=== PATIENT | male | born 1945 | race Hispanic/Latino ===

== ENCOUNTER 2018-06-23 08:12 | Day surgery (SDC) | payer MEDICARE ==
[~2018-06-23 08:12] MED LIST: ANCEF/STERILE WATER 2 GM/20 ML 2 GM/20 ML SYRINGE IV NR
[2018-06-23 08:53] LABS: Basophils # (Auto) 0.1 K/mm3 (0.0-0.1); Eosinophils # (Auto) 0.6 K/mm3 (0.0-0.4); Eosinophils % (Auto) 6.2 % (0.0-4.3); Hematocrit 43.6 % (35.5-45.6); Hemoglobin 14.5 gm/dl (11.8-15.2); Lymphocytes # (Auto) 1.4 K/mm3 (1.2-5.4); Lymphocytes % (Auto) 15.3 % (13.4-35.0); Mean Corpuscular HGB Conc 33 % (32-34); Mean Corpuscular Hemoglobin 32 pg (28-32); Mean Corpuscular Volume 95 fl (84-94); Platelet Count 200 K/mm3 (140-440); Red Cell Distribution Width 15.5 % (13.2-15.2)
[2018-06-23 09:04] LABS: INR 1.47 (0.87-1.13)
[2018-06-23 09:05] LABS: Partial Thromboplastin Time 45.6 Sec. (24.2-36.6)
[2018-06-23 09:12] LABS: Calcium 9.3 mg/dL (8.4-10.2)
[2018-06-23] MEDS: NACL 0.9% 1000 ML 1,000 ML IV SCH ×2 (09:18→11:58)
[2018-06-23] MEDS ORDERED: HEPARIN 10,000 UNITS/10 ML ONE (11:02)
[2018-06-23] MEDS ORDERED: HEPARIN/NS 5000 UNIT/500ML(CATH LAB) 1,000 ML IR ONE (11:02)
[2018-06-23] MEDS ORDERED: XYLOCAINE 2% INFILTRATI ONE ×2 (11:02→11:57)
[2018-06-23] MEDS ORDERED: NACL 0.9% 500 ML 0 ML ONE (11:25)
[2018-06-23] MEDS: SUBLIMAZE ONE ×2 (11:58→12:00)
[2018-06-23] MEDS: VERSED ONE ×2 (11:58→12:00)
--- NOTE | 2018-06-23 12:21 | Short Stay Summary ---
Short Stay Documentation Date of service: 06/23/18 - History Principal diagnosis: venous hypertension H&P: obtained from office - Allergies and Medications Current Medications: Allergies No Known Allergies Allergy (Unverified 06/23/18 08:13) Home Medications Medication Instructions Recorded Confirmed Last Taken Type ALBUTEROL Inhaler (OR & NICU) 2 puff IH QID PRN 06/23/18 06/23/18 06/22/18 History [Proair] ALBUTEROL Inhaler(NF) [VENTOLIN 2 puff IH BID 06/23/18 06/23/18 06/22/18 History Inhaler(NF)] Atenolol [Tenormin] 100 mg PO DAILY 06/23/18 06/23/18 06/23/18 History Fluticasone/Salmeterol(Nf) [Advair 1 puff IH DAILY 06/23/18 06/23/18 06/22/18 History HFA 115-21 mcg] Furosemide [Lasix TAB] 20 mg PO DAILY 06/23/18 06/23/18 06/22/18 History Lisinopril/Hydrochlorothiazide 1 each PO DAILY 06/23/18 06/23/18 06/23/18 History [Zestoretic 10-12.5 mg Tablet] Metformin HCl 1,000 mg PO BID 06/23/18 06/23/18 06/22/18 History Pravastatin [Pravachol] 20 mg PO DAILY 06/23/18 06/23/18 06/22/18 History Warfarin Sodium 5 mg PO DAILY 06/23/18 06/23/18 06/22/18 History buPROPion XL [Wellbutrin Xl] 150 mg PO QAM 06/23/18 06/23/18 06/22/18 History traZODone [Desyrel] 50 mg PO QHS 06/23/18 06/23/18 06/22/18 History Active Medications Cefazolin Sodium (Ancef/Sterile Water 2 Gm/20 Ml) 2 gm in 20 mls @ 80 mls/hr IV PREOP NR; Protocol Stop: 06/23/18 23:59 Sodium Chloride (Nacl 0.9% 1000 Ml) 1,000 mls @ 42 mls/hr IV DIRECT MAVERICK Last Admin: 06/23/18 09:18 Dose: 42 mls/hr - Brief post op/procedure progress note Date of procedure: 06/23/18 Pre-op diagnosis: venous hypertension Post-op diagnosis: same Procedure: Bilateral lower extremity venogram, bilateral lower extremity intravascular ultrasound Anesthesia: local Surgeon: DESIRAE DAVIS Estimated blood loss: minimal Pathology: none Condition: stable - Disposition Condition at discharge: Good Disposition: [id number] TO HOME OR SELFCARE Short Stay Discharge Plan Activity: advance as tolerated Weight Bearing Status: Weight Bear as Tolerated Diet: regular Wound: keep clean and dry, per your surgeon's advice Follow up with: CODY HODGE MD [Other] - 7 Days
--- NOTE | 2018-06-23 12:26 | Operative Report ---
Operative Report Operative Report: Exam: Bilateral lower extremity venogram with bilateral lower extremity venous intravascular ultrasound Clinical indication: Patient with a history of venous hypertension status post treatment of the superficial venous system with persistent symptoms of bilateral lower extremity pain, swelling and skin discoloration Date: 06/23/2018 Procedure: Following an explanation of the risks, benefits and alternatives; written informed consent was obtained. The patient was brought to the angiographic suite and placed in supine position on the examination table. Initial ultrasound evaluation of his legs demonstrated patent femoral veins bilaterally. The patient's bilateral legs and groin were prepped and draped in the usual sterile fashion. 1% lidocaine was used for anesthesia. Under ultrasound guidance, the right femoral vein proximally was cannulated with a 7 cm 18-gauge needle. A 0.035 guidewire was advanced centrally. The needle was removed and a 5 [place] sheath placed. Access to the left proximal femoral vein was obtained in a similar fashion and a second 5 [place] sheath placed. Venogram performed through both sheaths demonstrated what appears to be extrinsic compression of the left common iliac vein. There is sluggish flow throughout the presence of reflux within collateral veins in the pelvis and abdomen. A decision was made to further evaluate with intravascular ultrasound. Over the guidewires, but sheaths were upsized to 10 [place] sheaths bilaterally. Intravascular ultrasound was then performed through the right sheath from the IVC to the sheath insertion site. Imaged vessels include the IVC, right common iliac vein, right external iliac vein and right common femoral vein. Size measurements demonstrate appropriate size throughout the iliac veins and common femoral vein however, the IVC is distended with a cross sectional area of 480 mm . Intravascular ultrasound was then performed to the left sheath from the left common iliac vein to the sheath insertion site. The left common iliac vein , left external iliac vein and left common femoral vein are widely patent. There is some extrinsic compression of the left common iliac vein without hemodynamically significant stenosis. Further evaluation with venography of the entire IVC and right atrium demonstrates sluggish flow with reflux into the renal veins and hepatic veins. At this point, the catheters, guidewires and sheaths were removed and hemostasis achieved using manual compression. Sterile compression dressing for then placed. The patient tolerated the procedure well. There were no immediate post procedure complications. Conscious sedation was performed under the guidance of radiologic nursing. Continuous cardiac culinary monitoring was utilized. Impression: 1) Bilateral lower extremity venogram encoding imaging of the pelvic veins as well as IVC to the right atrium demonstrates sluggish flow with decreased cardiac output and reflux into the hepatic veins and renal veins as well as collaterals arising from the IVC and pelvic veins. 2) Intravascular ultrasound of the IVC, right common iliac vein, right external iliac vein, right common femoral vein, left common iliac vein, left external iliac vein and left common femoral vein demonstrate patent flow throughout with only minimal extrinsic compression of the left common iliac vein without hemodynamically significant stenosis. 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 Recommended that the patient follow up at the outpatient insulation nozzleman for repeat echocardiogram
[2018-06-23 14:26] VITALS: BP 146/71
== END 2018-06-23 15:14 | disposition home or self-care (01) ==
LOC: CATHLABREC 08:12
PROVIDERS: ATTEND Radiology Diagnostic Radiology
DX: I87.1 Compression of vein (principal); I87.303 Chronic venous hypertension (idiopathic) without complications of bilateral lower extremity; I11.0 Hypertensive heart disease with heart failure; I50.9 Heart failure, unspecified; E78.00 Pure hypercholesterolemia, unspecified; I25.2 Old myocardial infarction; I48.91 Unspecified atrial fibrillation; J44.9 Chronic obstructive pulmonary disease, unspecified; G47.30 Sleep apnea, unspecified; M19.90 Unspecified osteoarthritis, unspecified site; F41.9 Anxiety disorder, unspecified; Z79.899 Other long term (current) drug therapy; Z79.01 Long term (current) use of anticoagulants; Z79.84 Long term (current) use of oral hypoglycemic drugs; Z87.891 Personal history of nicotine dependence; Z82.49 Family history of ischemic heart disease and other diseases of the circulatory system; Z80.8 Family history of malignant neoplasm of other organs or systems
CPT/HCPCS: 36415; 37252; 37253; 75822; 80048; 85025; 85610; 85730; C1753; C1887; J1644; J2250; J3010; J7030; J7040; Q9967